=== PATIENT | female | born 1960 | race Caucasian/White ===

== ENCOUNTER 2021-08-01 09:37 | Observation (INO) ==
[2021-08-01] MEDS ORDERED: Albuterol/Ipratropium NEB.SOL (2.5/0.5 MG) 3 ML NEB.SOLN INH ONE ×2 (10:17→14:30)
[2021-08-01] MEDS ORDERED: Dexamethasone IV 4 MG/ML VIAL 1 ml VIAL IV SLOW PU ONE (10:18)
[2021-08-01 10:52] LABS: ABS Eosinophils 0.1 10^3/ul (0-0.6); ABS Lymphocytes 1.7 10^3/ul (1.0-4.8); ABS Monocytes 0.9 10^3/ul (0-0.8); ABS Neutrophils 5.1 10^3/ul (1.5-7.7); Eosinophil % 1.8 %; Hematocrit 43 % (35-47); Hemoglobin 15.2 g/dL (12.0-16.0); Lymphocyte % 22.1 %; Mean Corpuscular HGB Conc 35 g/dL (31-36); Mean Corpuscular Hemoglobin 32 pg (27-31); Mean Corpuscular Volume 91 fL (80-97); Mean Platelet Volume 6.5 fL (7.4-10.4); Platelet Count 166 10^3/uL (150-450); Red Blood Count 4.78 10^6 /uL (3.70-4.87); Red Cell Distribution Width 14 % (10-15); White Blood Count 7.9 10^3/uL (3.5-10.8)
[2021-08-01 11:01] LABS: Activated Partial Thrombo Time 35.1 seconds (26.0-38.0); INR 1.14 (0.86-1.15)
[2021-08-01 11:15] LABS: High Sens Troponin Baseline < 3 pg/mL (<15)
[2021-08-01 11:30] LABS: ALT 27 U/L (7-52); Albumin 4.3 g/dL (3.2-5.2); Albumin/Globulin Ratio 1.7 (1-3); Alkaline Phosphatase 87 U/L (35-149); Blood Urea Nitrogen 11 mg/dL (6-24); C Reactive Protein 23.83 mg/L (<8.01); CO2 Carbon Dioxide 23 mmol/L (22-32); Calcium 9.1 mg/dL (8.6-10.3); Chloride 107 mmol/L (101-111); Globulin 2.6 g/dL (2-4); Glucose 90 mg/dL (70-100); Sodium 138 mmol/L (135-145); Total Protein 6.9 g/dL (6.4-8.9); eGFR CKD-EPI 96.3 (>60)
[2021-08-01 11:59] LABS: AST 21 U/L (13-39); Anion Gap 8 mmol/L (2-11); Potassium 4.1 mmol/L (3.5-5.0)
[2021-08-01 12:20] LABS: High Sensitivity Troponin 1 Hr < 3 pg/mL (<15)
[2021-08-01 15:19] LABS: Urine Appearance Cloudy; Urine Bilirubin Negative (Negative); Urine Blood 1+ (Negative); Urine Color Yellow; Urine Glucose Negative (Negative); Urine Ketones Negative (Negative); Urine Nitrite Negative (Negative); Urine Protein Negative (Negative); Urine Specific Gravity 1.008 (1.002-1.030); Urine Urobilinogen Negative (Negative)
[2021-08-01 15:33] LABS: Urine Bacteria Absent (Absent); Urine Red Blood Cell Trace(0-2/hpf) (Absent); Urine Squamous Epithelial Cell Present (Absent); Urine White Blood Cell Absent (Absent)
[2021-08-01] MEDS ORDERED: Albuterol/Ipratropium NEB.SOL (2.5/0.5 MG) 3 ML NEB.SOLN INH PRN (15:55)
[2021-08-01] MEDS ORDERED: Albuterol HFA INHALER 8 gm MDI INH PRN (15:57)
[2021-08-01] MEDS: Enoxaparin 40 MG/0.4 ML SYR SUBCUT SCH (17:03)
[2021-08-01] MEDS ORDERED: Mometasone/Formoter 100/5 MDI INH SCH (19:00)
[2021-08-01] MEDS: Albuterol HFA INHALER 8 gm MDI INH SCH (20:57)
[2021-08-01] MEDS ORDERED: PRAMIPEXOLE 0.25 MG PO SCH (21:00)
[2021-08-02 06:45] LABS: ABS Lymphocytes 2.1 10^3/ul (1.0-4.8); ABS Monocytes 1.2 10^3/ul (0-0.8); ABS Neutrophils 8.6 10^3/ul (1.5-7.7); Hematocrit 41 % (35-47); Hemoglobin 14.5 g/dL (12.0-16.0); Lymphocyte % 17.3 %; Mean Corpuscular HGB Conc 35 g/dL (31-36); Mean Corpuscular Hemoglobin 32 pg (27-31); Mean Corpuscular Volume 90 fL (80-97); Mean Platelet Volume 6.8 fL (7.4-10.4); Platelet Count 170 10^3/uL (150-450); Red Cell Distribution Width 14 % (10-15)
[2021-08-02 07:06] LABS: Calcium 9.5 mg/dL (8.6-10.3); Potassium 4.7 mmol/L (3.5-5.0); eGFR CKD-EPI 87.4 (>60)
[2021-08-02] MEDS: Albuterol HFA INHALER 8 gm MDI INH SCH ×5 (07:32→23:32)
[2021-08-02] MEDS: SPIRIVA Respimat (tiotropium) 2.5 mcg/inh Inhaler INH SCH (07:33)
[2021-08-02] MEDS ORDERED: Pneumococcal Vac 23-Polyvalent IM ONE (09:00)
[2021-08-02] MEDS: Nicotine PATCH 7 MG/24 HR PATCH TRANSDERM SCH (09:04)
[2021-08-02] MEDS: Enoxaparin 40 MG/0.4 ML SYR SUBCUT SCH (20:43)
[2021-08-03 06:09] LABS: ABS Lymphocytes 3.7 10^3/ul (1.0-4.8); ABS Monocytes 0.9 10^3/ul (0-0.8); ABS Neutrophils 7.2 10^3/ul (1.5-7.7); Eosinophil % 0.1 %; Hematocrit 41 % (35-47); Hemoglobin 14.5 g/dL (12.0-16.0); Mean Corpuscular HGB Conc 35 g/dL (31-36); Mean Corpuscular Hemoglobin 32 pg (27-31); Mean Corpuscular Volume 90 fL (80-97); Mean Platelet Volume 6.7 fL (7.4-10.4); Nucleated Red Blood Cells % 0.1; Platelet Count 161 10^3/uL (150-450); Red Blood Count 4.56 10^6 /uL (3.70-4.87); Red Cell Distribution Width 13 % (10-15); White Blood Count 11.8 10^3/uL (3.5-10.8)
[2021-08-03 06:13] LABS: Calcium 8.9 mg/dL (8.6-10.3); Potassium 3.8 mmol/L (3.5-5.0); eGFR CKD-EPI 99.9 (>60)
[2021-08-03] MEDS: Albuterol HFA INHALER 8 gm MDI INH SCH ×4 (08:48→20:12)
[2021-08-03] MEDS: SPIRIVA Respimat (tiotropium) 2.5 mcg/inh Inhaler INH SCH (08:48)
[2021-08-03] MEDS: Nicotine PATCH 7 MG/24 HR PATCH TRANSDERM SCH (10:58)
[2021-08-03] MEDS: Enoxaparin 40 MG/0.4 ML SYR SUBCUT SCH (20:09)
[2021-08-04 06:30] LABS: Hematocrit 41 % (35-47); Hemoglobin 14.3 g/dL (12.0-16.0); Mean Corpuscular HGB Conc 35 g/dL (31-36); Mean Corpuscular Hemoglobin 32 pg (27-31); Mean Corpuscular Volume 91 fL (80-97); Mean Platelet Volume 6.8 fL (7.4-10.4); Platelet Count 173 10^3/uL (150-450); Red Cell Distribution Width 14 % (10-15); White Blood Count 14.7 10^3/uL (3.5-10.8)
[2021-08-04 06:50] LABS: Calcium 8.9 mg/dL (8.6-10.3); eGFR CKD-EPI 100.3 (>60)
[2021-08-04] MEDS: Nicotine PATCH 7 MG/24 HR PATCH TRANSDERM SCH (08:39)
[2021-08-04] MEDS: Albuterol HFA INHALER 8 gm MDI INH SCH ×2 (09:08→11:08)
[2021-08-04] MEDS: SPIRIVA Respimat (tiotropium) 2.5 mcg/inh Inhaler INH SCH (09:09)
[2021-08-04 11:54] VITALS: BP 120/54
== END 2021-08-04 13:00 | disposition home or self-care (01) ==
LOC: ED 09:37 → INTOOBSV 15:35 → EDHOLD 15:35 → MEDTELE 18:10
PROVIDERS: ADMIT Hospitalist; ATTEND Hospitalist